=== PATIENT | male | born 1940 | race Caucasian/White ===

== ENCOUNTER 2017-02-07 10:02 | Emergency (ER) | payer MEDICARE, OTHER, MEDICAID ==
[~2017-02-07] VITALS: Ht 172.7 cm; Wt 60.3 kg
[~2017-02-07 10:02] MED LIST: BUSP10TA3 PO; GABA100C PO; TEMA15CA PO
[2017-02-07] MEDS ORDERED: ACETAMINOPHEN ES 500 MG TABLET ONE (10:46)
[2017-02-07] MEDS ORDERED: ACETAMINOPHEN ES 500 MG TABLET PO ONE (11:00)
--- NOTE | 2017-02-07 11:00 | NUR ---
RECEIVED PT ON BED, AWAKE AND ALERT. PT TO ED LOWER AND MID BACK PAIN STARTED AFTER GETTING OUT OF BED A WEEK AGO. PATIENT'S VSS.
--- NOTE | 2017-02-07 12:24 | NUR ---
PT WAS TAKEN TO CT
[2017-02-07] MEDS ORDERED: ACETAMINOPHEN W/ CODEINE#3 1 EA TABLET ONE (12:27)
[2017-02-07] MEDS ORDERED: ACETAMINOPHEN W/ CODEINE#3 1 EA TABLET PO ONE (12:30)
--- NOTE | 2017-02-07 12:36 | NUR ---
PT STILL IN CT
[2017-02-07 13:19] VITALS: BP 140/80
--- NOTE | 2017-02-07 13:19 | NUR ---
Patient discharged to home in stable condition. Written and verbal after care instructions given. Patient verbalizes understanding of instruction.
== END 2017-02-07 13:20 | disposition home or self-care (01) ==
LOC: ER 10:03
DX: S32.019A Unspecified fracture of first lumbar vertebra, initial encounter for closed fracture (principal); M48.56XA Collapsed vertebra, not elsewhere classified, lumbar region, initial encounter for fracture; M51.35 Other intervertebral disc degeneration, thoracolumbar region; I10 Essential (primary) hypertension; Z86.73 Personal history of transient ischemic attack (TIA), and cerebral infarction without residual deficits; Z98.890 Other specified postprocedural states; W10.9XXA Fall (on) (from) unspecified stairs and steps, initial encounter; Y93.89 Activity, other specified; Y92.89 Other specified places as the place of occurrence of the external cause; Y99.9 Unspecified external cause status
CPT/HCPCS: 71010-TC; 72070-TC; 72110-TC; 72131-TC; A4606; Z7610

== ENCOUNTER 2017-03-10 09:27 | Inpatient (IN) | payer MEDICARE, OTHER, MEDICAID ==
[~2017-03-10] VITALS: Ht 175.3 cm; Wt 59.0 kg
--- NOTE | 2017-03-10 09:30 | NUR ---
C/O GLF THIS AM STATES AFTER GETTING UP TOO FAST THIS MORNING, LAC TO LEFT SIDE OF FOREHEAD NOTED. DENIES TAKING BLOODTHINNERS, ONLY XANAX AND RESTORIL FOR MEDICATIONS. NAD NOTED. PT AAO X4, AMB WITH STEADY GAIT. RR EVEN AND UNLABORED. DR DORANTES AT BEDSIDE FOR EVAL.
[2017-03-10] MEDS ORDERED: ALPR0.25 PO (09:38)
[2017-03-10] MEDS ORDERED: TEMA15CA5 PO (09:38)
[2017-03-10] MEDS ORDERED: LIDOCAINE 2% 20 ML MDV ONE (09:44)
--- NOTE | 2017-03-10 09:47 | NUR ---
PATIENT TAKEN TO CT VIA STRETCHER.
[2017-03-10 09:51] LABS: BASOPHILS % (AUTO) 0.6 % (0.0-2.0); EOSINOPHILS # (AUTO) 0.2 /CMM (0.0-0.7); EOSINOPHILS % (AUTO) 3.6 % (0.0-6.0); HEMATOCRIT 45 % (39-51); HEMOGLOBIN 14.6 g/dL (13.5-17.5); LYMPHOCYTES # (AUTO) 1.3 /CMM (0.8-4.8); LYMPHOCYTES % (AUTO) 24.1 % (20.0-44.0); MEAN CORPUSCULAR HEMOGLOBIN 32 PG (26.0-33.0); MEAN CORPUSCULAR HGB CONC 32 g/dl (31.0-36.0); MEAN CORPUSCULAR VOLUME 97 fL (80-96); MONOCYTES # (AUTO) 0.3 /CMM (0.1-1.30); MONOCYTES % (AUTO) 6.2 % (2.0-12.0); NEUTROPHILS # (AUTO) 3.6 /CMM (1.8-8.9); NEUTROPHILS % (AUTO) 65.5 % (43.0-81.0); PLATELET COUNT (AUTO) 209 /CMM (150-450); RDW COEFFICIENT OF VARIATION 13.8 (11.5-15.0); RED BLOOD CELL COUNT(AUTO) 4.63 MIL/uL (4.5-6.0); WHITE BLOOD COUNT (AUTO) 5.4 K/uL (4.3-11.0)
[2017-03-10 10:00] LABS: CALCIUM, SERUM 8.5 mg/dL (8.5-10.1); CARBON DIOXIDE 33 mmol/L (21-32); CHLORIDE 106 mmol/L (98-107); CREATININE 1.1 mg/dL (0.6-1.3); GLUCOSE 102 mg/dL (74-106); SODIUM SERUM 144 mmol/L (136-145); UREA NITROGEN, BLOOD 13 mg/dL (7-18)
[2017-03-10] MEDS ORDERED: LIDOCAINE HCL/PF 1% 30 ML VIAL TP ONE (10:00)
--- NOTE | 2017-03-10 10:00 | NUR ---
PATIENT RETURNED FROM CT.
[2017-03-10 10:06] LABS: ALANINE AMINOTRANSFERASE 15 U/L (12-78); ALBUMIN 3.2 g/dL (3.4-5.0); ALKALINE PHOSPHATASE 124 U/L (46-116); ASPARTATE AMINOTRANSFERASE 16 U/L (15-37); BILIRUBIN,DIRECT 0.1 mg/dL (0.0-0.2); BILIRUBIN,TOTAL 0.5 mg/dL (0.2-1.0); TOTAL PROTEIN, SERUM 6.4 g/dL (6.4-8.2)
[2017-03-10 10:07] LABS: INR 0.98 (0.87-1.13); PROTHROMBIN TIME 10.2 SECS (9.5-12.7)
[2017-03-10 10:08] LABS: TROPONIN I < 0.017 ng/mL (0.00-0.056)
[2017-03-10] MEDS ORDERED: TEMA7.5C12 PO (10:18)
[2017-03-10] MEDS ORDERED: GABA-534 PO (10:18)
[2017-03-10] MEDS ORDERED: PARO10TA3 PO (10:26)
--- NOTE | 2017-03-10 10:38 | NUR ---
PANEL ON-CALL PAGED
--- NOTE | 2017-03-10 10:42 | NUR ---
REPORT GIVEN TO CARRILLO ROBERTSON FOR ANGEL
--- NOTE | 2017-03-10 11:10 | NUR ---
PATIENT TRANSFERRED TO [facility] VIA ACLS PROTOCOL. RNSALONI TO PROVIDE ANGEL.
--- NOTE | 2017-03-10 11:30 | NUR ---
RPG PROGRAMMERSPECIAL EDUCATION TEACHER NOTE PATIENT IS ALERT AND ORIENTED x4. NO PAIN AT THIS TIME. NO SOB OR DISTRESS NOTED. CALL LIGHT WITHIN REACH. SAFETY MEASURES IMPLEMENTED. ABLE TO COMMUNICATE NEEDS. BEDREST FOR NOW. PATIENT CAME FROM HOME, HE STATED HE FELT DIZZY AND FELL IN BATHROOM. PATIENT HAS MONITOR ON, SINUS [id number]. HISTORY OF STROKE, TIA, URETER SURGERY, PNA, AND HTN. NO KNOWN ALLERGIES. FULL CODE NO ISOLATION. IV ON LEFT AC 18G RUNNING WELL. NO MD ORDERS AT THIS TIME. WILL FOLLOW UP WITH MD.
[2017-03-10] MEDS ORDERED: TEMAZEPAM 7.5 MG CAPSULE PO PRN (13:00)
[2017-03-10] MEDS ORDERED: IV NS 0.9% 1,000 ML BAG IV PRN (13:00)
[2017-03-10] MEDS ORDERED: CLONIDINE HCL 0.1 MG TABLET PO PRN (14:00)
[2017-03-10] MEDS ORDERED: ONDANSETRON HCL/PF 4 MG/2 ML VIAL IVP PRN (14:00)
[2017-03-10] MEDS ORDERED: ACETAMINOPHEN 325 MG TABLET PO PRN (14:00)
[2017-03-10] MEDS: PAROXETINE HCL 10 MG TABLET PO SCH (14:06)
[2017-03-10] MEDS: GABAPENTIN 300 MG CAPSULE PO SCH ×2 (14:06→17:14)
[2017-03-10] MEDS: HYDROCODONE/APAP 5/325MG 1 EACH TABLET PO PRN ×2 (14:09→21:30)
--- NOTE | 2017-03-10 18:43 | NUR ---
MANAGER CLINICAL RESEARCH CLOSING NOTE PATIENT IS ALERT AND ORIENTEDX4. NO PAIN AT THIS TIME. NO SOB OR DISTRESS NOTED. CALL LIGHT WITHIN REACH.SAFETY MEASURES IMPLEMENTED. ABLE TO COMMUNICATE NEEDS. BEDREST. IV INTACT AND PATENT NO REDNESS OR SWELLING NOTED. NPO AFTER MIDNIGHT FOR ECHO AND POSSIBLE STRESS TEST IN THE MORNING 03/11/17. ALL DUE MEDICATIONS GIVEN ORDERED. WILL ENDORSE TO GLUE MAKER BONE NURSE FOR ANGEL
--- NOTE | 2017-03-10 19:00 | NUR ---
MS RN OPENING NOTES RECEIVE PT RESTING IN BED,PT A/OX 3. NO S/S OF RESPIRATORY DISTRESS OR SOB. SAFETY MEASURES IN PLACE, ON LOW BED TO ENSURE SAFETY. CALL LIGHT WITHIN REACH. WILL CONTINUE TO MONITOR
[2017-03-10] MEDS: IV NS 0.9% 1,000 ML IV PRN (19:06)
[2017-03-10 20:00] VITALS: BP 124/77
[2017-03-10 21:11] VITALS: BP 124/77
[2017-03-11] VITALS (7 sets, daily range): BP systolic 114–143; BP diastolic 62–90
--- NOTE | 2017-03-11 06:23 | NUR ---
FOUNTAIN PEN TURNER CLOSING NOTES PATIENT COMFORTABLY ASLEEP AND EASILY AWAKEN, A/O X 3, HEAD OF BED ELEVATED FOR BETTER LUNG EXPANSION TOLERATING ROOM AIR 100% LAC 18 G NS RUNNING AT 75 CC/HR IV SITE NO S/S OF INFILTRATED, PATIENT DENIES PAIN AT THIS TIME. RESPIRATIONS EVEN AND UNLABORED. NO S/S OF ACUTE DISTRESS, NO SOB, NO COUGH, NO CONGESTION, SKIN WARM AND DRY TO TOUCH, AFEBRILE, ALL NURSING CARE NEEDS PROVIDED AND RENDERED. KEPT CLEAN AND DRY AND COMFORTABLE, GOOD SKIN ARE PROVIDED. FREQUENT VISUAL CHECK DONE FOR SAFETY EVERY 2 HOURS. SAFE HAZARD FREE ENVIRONMENT PROVIDED. CALL LIGHT WITHIN EASY TO REACH, ON LOW BED AT ALL TIMES TO ENSURE SAFETY, WILL ENDORSE TO THE NEXT SHIFT CONTINUE PLAN OF CARE. ATTACH TO TELE MONITOR
--- NOTE | 2017-03-11 07:55 | NUR ---
RN NOTES RECEIVED PT. PT IS STABLE AND SLEEPING IN BED. NO S/S OF DISTRESS OR SOB. NO C/O PAIN AT THIS MOMENT. PT IS ON RA, O2 SAT ABOVE 95%. PT IS ON TELE MONITOR, CURRENTLY SR. IV ACCESS LOCATED ON LEFT AC 18 G RUNNING NS AT 75 ML/HR. PT IS SCHEDULED FOR ECHOCARDIOGRAM TODAY, 03/11. SAFETY MEASURES IN PLACE, CALL LIGHT WITHIN REACH. WILL CONTINUE TO MONITOR.
[2017-03-11 07:59] LABS: BASOPHILS % (AUTO) 0.4 % (0.0-2.0); EOSINOPHILS # (AUTO) 0.2 /CMM (0.0-0.7); HEMATOCRIT 42 % (39-51); LYMPHOCYTES # (AUTO) 1.7 /CMM (0.8-4.8); LYMPHOCYTES % (AUTO) 37.1 % (20.0-44.0); MEAN CORPUSCULAR HEMOGLOBIN 33 PG (26.0-33.0); MEAN CORPUSCULAR HGB CONC 34 g/dl (31.0-36.0); MEAN CORPUSCULAR VOLUME 98 fL (80-96); MONOCYTES # (AUTO) 0.4 /CMM (0.1-1.30); NEUTROPHILS # (AUTO) 2.3 /CMM (1.8-8.9); NEUTROPHILS % (AUTO) 49.5 % (43.0-81.0); PLATELET COUNT (AUTO) 178 /CMM (150-450); RDW COEFFICIENT OF VARIATION 14.5 (11.5-15.0); RED BLOOD CELL COUNT(AUTO) 4.28 MIL/uL (4.5-6.0); WHITE BLOOD COUNT (AUTO) 4.6 K/uL (4.3-11.0)
[2017-03-11 08:16] LABS: CALCIUM, SERUM 8.5 mg/dL (8.5-10.1); CARBON DIOXIDE 29 mmol/L (21-32); CHLORIDE 108 mmol/L (98-107); CREATININE 0.9 mg/dL (0.6-1.3); GLUCOSE 85 mg/dL (74-106); POTASSIUM 3.9 mmol/L (3.5-5.1); SODIUM SERUM 142 mmol/L (136-145); UREA NITROGEN, BLOOD 14 mg/dL (7-18)
[2017-03-11 08:21] LABS: TROPONIN I < 0.017 ng/mL (0.00-0.056)
[2017-03-11 08:22] LABS: CHOLESTEROL 177 mg/dL (<200); HDL CHOLESTEROL 43 mg/dL (40-60); LDL 119 mg/dL (0-99); TRIGLYCERIDES 85 mg/dL (30-150)
[2017-03-11] MEDS: GABAPENTIN 300 MG CAPSULE PO SCH ×2 (08:41→16:08)
[2017-03-11] MEDS: PANTOPRAZOLE 40 MG TABLET.DR PO SCH (08:41)
[2017-03-11] MEDS: HYDROCODONE/APAP 5/325MG 1 EACH TABLET PO PRN ×2 (08:42→20:41)
[2017-03-11] MEDS: ENOXAPARIN SODIUM 40 MG/0.4 ML DISP.SYRIN SQ SCH (08:43)
[2017-03-11] MEDS: ASPIRIN 81 MG TAB.CHEW PO SCH (08:43)
[2017-03-11] MEDS: PAROXETINE HCL 10 MG TABLET PO SCH (08:43)
[2017-03-11 09:11] LABS: ALBUMIN 2.7 g/dL (3.4-5.0); BILIRUBIN,TOTAL 0.4 mg/dL (0.2-1.0); MAGNESIUM 1.9 mg/dL (1.8-2.4); PHOSPHORUS 3.2 mg/dL (2.5-4.9); TOTAL PROTEIN, SERUM 6.1 g/dL (6.4-8.2)
--- NOTE | 2017-03-11 10:14 | NUR ---
WOUND CARE CONSULT: PT PRESENTS WITH LEFT EYEBROW LACERATION WITH SUTURES, LEFT FACE ABRASION AND RT HEAD DRY ABRASION OR LESION, ALL PRESENT ON ADMISSION. PT ALSO NOTED TO HAVE LEFT PLANTAR FOOT CALLUS. PT IS CONTINENT AND ABLE TO TURN/REPOSITION IN BED. CURRENT FARIBA SCORE IS 18. RECOMMENDATIONS MADE FOR WOUND CARE AND DISCUSSED WITH NURSING STAFF. WILL SEE PRN. LUTHER IN AGREEMENT WITH PLAN OF CARE. Addendum: 03/11/17 at 1017 by VANDANA SERVIN WNDNU Amended: Links added.
[2017-03-11] MEDS ORDERED: BACITRACIN/POLYMYXIN B 15 GM TUBE TP SCH (10:30)
[2017-03-11 12:39] LABS: THYROID STIMULATING HORMONE 1.011 uIU/mL (0.358-3.74)
[2017-03-11] MEDS: NEOMY SULF/BACITRAC ZN/POLY 15 GM TUBE TP SCH (14:00)
[2017-03-11] MEDS: IV NS 0.9% 1,000 ML IV PRN (14:16)
[2017-03-11] MEDS: ALPRAZOLAM 0.25 MG TABLET PO PRN (16:08)
--- NOTE | 2017-03-11 19:00 | NUR ---
MS RN OPENING NOTES RECEIVE PT RESTING IN BED, A/OX 4. NO S/S OF RESPIRATORY DISTRESS OR SOB. SAFETY MEASURES IN PLACE, ON LOW BED TO ENSURE SAFETY. CALL LIGHT WITHIN REACH. WILL CONTINUE TO MONITOR
--- NOTE | 2017-03-11 19:01 | NUR ---
RN CLOSING NOTES PT IS IN BED RESTING. A/OX4. NO S/S OF DISTRESS OR SOB. NO C/O PAIN AT THIS TIME. PT IS ON TELE MONITOR, READING SR. PT'S HOME HEALTH CONTACTED TODAY, DIRECT NURSING SERVICE [phone]. SAFETY MEASURES IN PLACE, CALL LIGHT WITHIN REACH. WILL ENDORSE TO PLUCK TRIMMER FOR ANGEL.
[2017-03-12] VITALS (7 sets, daily range): BP systolic 115–160; BP diastolic 76–94
[2017-03-12] MEDS: IV NS 0.9% 1,000 ML IV PRN (02:55)
--- NOTE | 2017-03-12 04:41 | NUR ---
MS RN NOTES CLONIDINE 0.1 MG PO GIVEN TO THE PT BP 160/91 AT 0430 WILL CONTINUE TO MONITOR
--- NOTE | 2017-03-12 06:29 | NUR ---
HOME HEALTH CARE COORDINATOR CLOSING NOTES PT ASLEEP AND EASILY AWAKEN, HOB, TOLERATING ROOM AIR 100%. LAC 18 NS RUNNING 75CC/IV SITE NO S/S OF INFILTRATED, NO S/S OF RESPIRATORY DISTRESS IN STABLE CONDITION. NO SOB, SKIN WARM AND DRY TO TOUCH, AFEBRILE, NEEDS ATTENDED AND ANTICIPATED. NURSING CARE RENDERED. KEPT CLEAN AND DRY AND COMFORTABLE, GOOD SKIN CARE PROVIDED. FREQUENT VISUAL CHECK DONE FOR SAFETY EVERY 2 HOURS. SAFE HAZARD FREE ENVIRONMENT PROVIDED. CALL LIGHT WITHIN EASY TO REACH, ON LOW BED AT ALL TIMES TO ENSURE SAFETY, WILL ENDORSE TO THE NEXT SHIFT CONTINUE PLAN OF CARE. NO COMPLAINS OF PAIN AT THIS TIME 0/10. ATTACH TO TELE MONITOR,
[2017-03-12 07:25] LABS: BASOPHILS % (AUTO) 0.4 % (0.0-2.0); EOSINOPHILS # (AUTO) 0.2 /CMM (0.0-0.7); EOSINOPHILS % (AUTO) 4.6 % (0.0-6.0); HEMATOCRIT 41 % (39-51); HEMOGLOBIN 13.9 g/dL (13.5-17.5); LYMPHOCYTES # (AUTO) 1.5 /CMM (0.8-4.8); LYMPHOCYTES % (AUTO) 34.1 % (20.0-44.0); MEAN CORPUSCULAR HEMOGLOBIN 33 PG (26.0-33.0); MEAN CORPUSCULAR HGB CONC 34 g/dl (31.0-36.0); MEAN CORPUSCULAR VOLUME 97 fL (80-96); MONOCYTES # (AUTO) 0.3 /CMM (0.1-1.30); MONOCYTES % (AUTO) 5.9 % (2.0-12.0); NEUTROPHILS # (AUTO) 2.5 /CMM (1.8-8.9); PLATELET COUNT (AUTO) 188 /CMM (150-450); RDW COEFFICIENT OF VARIATION 14.3 (11.5-15.0); RED BLOOD CELL COUNT(AUTO) 4.22 MIL/uL (4.5-6.0); WHITE BLOOD COUNT (AUTO) 4.5 K/uL (4.3-11.0)
--- NOTE | 2017-03-12 07:30 | NUR ---
received pt. in am alert and orientedx3.no complaints offered,verbalized he wants to go home.
[2017-03-12 07:54] LABS: CALCIUM, SERUM 8.2 mg/dL (8.5-10.1); CARBON DIOXIDE 25 mmol/L (21-32); CHLORIDE 107 mmol/L (98-107); CREATININE 0.8 mg/dL (0.6-1.3); GLUCOSE 87 mg/dL (74-106); SODIUM SERUM 141 mmol/L (136-145); UREA NITROGEN, BLOOD 13 mg/dL (7-18)
[2017-03-12] MEDS: PAROXETINE HCL 10 MG TABLET PO SCH ×2 (09:00→09:13)
[2017-03-12] MEDS: ASPIRIN 81 MG TAB.CHEW PO SCH (09:13)
[2017-03-12] MEDS: HYDROCODONE/APAP 5/325MG 1 EACH TABLET PO PRN (09:13)
[2017-03-12] MEDS: PANTOPRAZOLE 40 MG TABLET.DR PO SCH (09:13)
[2017-03-12] MEDS: GABAPENTIN 300 MG CAPSULE PO SCH (09:13)
--- NOTE | 2017-03-12 09:13 | NUR ---
med. for back pain with [place].
[2017-03-12] MEDS: ENOXAPARIN SODIUM 40 MG/0.4 ML DISP.SYRIN SQ SCH (09:15)
[2017-03-12] MEDS: NEOMY SULF/BACITRAC ZN/POLY 15 GM TUBE TP SCH (09:16)
--- NOTE | 2017-03-12 12:45 | NUR ---
mrsa smear done and and lab notified.
[2017-03-12] MEDS: ALPRAZOLAM 0.25 MG TABLET PO PRN (13:37)
--- NOTE | 2017-03-12 13:37 | NUR ---
medicated for nerves with xanax.did refuse paxil in am.
--- NOTE | 2017-03-12 15:00 | NUR ---
dr. osorio in and dc order given.
--- NOTE | 2017-03-12 15:25 | NUR ---
discharge photos taken.tolerated well.attempting to arrange for his ride.
--- NOTE | 2017-03-12 17:30 | NUR ---
discharge instructions given,all papers signed.hep lock out. friend here to pick pt. up,wheeled to lobby by rn.pt. aware to see coconut cooker for suture removal and follow up with dr. duran.
== END 2017-03-12 17:35 | disposition home or self-care (01) | DRG 312 ==
LOC: ER 09:29 → TELE 10:47 → MED 03-12 09:00
PROVIDERS: ADMIT Internal Medicine; ATTEND Internal Medicine
PROC: 0HQ1XZZ Repair Face Skin, External Approach (ICD-10-PCS; principal; 2017-03-10)
DX: R55 Syncope and collapse (principal); G62.9 Polyneuropathy, unspecified; W18.30XA Fall on same level, unspecified, initial encounter; I10 Essential (primary) hypertension; E78.5 Hyperlipidemia, unspecified; I25.10 Atherosclerotic heart disease of native coronary artery without angina pectoris; Z79.899 Other long term (current) drug therapy; Z86.73 Personal history of transient ischemic attack (TIA), and cerebral infarction without residual deficits; Z87.891 Personal history of nicotine dependence; R53.1 Weakness; M19.90 Unspecified osteoarthritis, unspecified site; Y93.9 Activity, unspecified; Y92.009 Unspecified place in unspecified non-institutional (private) residence as the place of occurrence of the external cause; S01.81XA Laceration without foreign body of other part of head, initial encounter; F41.1 Generalized anxiety disorder
CPT/HCPCS: 36415; 70450-TC; 71010-TC; 80048-TC; 80061-TC; 80076-TC; 82306; 83735-TC; 84100-TC; 84439-TC; 84443-TC; 84484-TC; 85025-TC; 85730-TC; 87081-TC; 93307-TC; A4606; A6402; J1650; J3490; J7030; Z7610

== ENCOUNTER 2019-03-12 10:09 | Emergency (ER) | payer BC, MEDICAID ==
[~2019-03-12] VITALS: Ht 172.7 cm; Wt 59.0 kg
[~2019-03-12 10:09] MED LIST changes: +ALPR0.25 PO; -BUSP10TA3 PO; +GABA-534 PO; -GABA100C PO; +PARO10TA4 PO; -TEMA15CA PO; +TEMA7.5C12 PO
[2019-03-12 10:16] VITALS: BP 164/110
[2019-03-12] MEDS ORDERED: TEMA15CA5 PO (10:21)
[2019-03-12] MEDS ORDERED: OXYC-133 PO (10:21)
--- NOTE | 2019-03-12 10:29 | NUR ---
AT BEDSIDE FOR EVAL.
[2019-03-12] MEDS ORDERED: LORAZEPAM 0.5 MG TABLET ONE (10:33)
--- NOTE | 2019-03-12 10:40 | NUR ---
Patient discharged to home in stable condition. Written and verbal after care instructions given. Patient verbalizes understanding of instruction.
[2019-03-12] MEDS ORDERED: LORAZEPAM 1 MG TABLET PO ONE (11:00)
== END 2019-03-12 10:40 | disposition home or self-care (01) ==
LOC: ER 10:19
DX: S00.81XA Abrasion of other part of head, initial encounter (principal); I10 Essential (primary) hypertension; F41.9 Anxiety disorder, unspecified; Z76.0 Encounter for issue of repeat prescription; Z86.73 Personal history of transient ischemic attack (TIA), and cerebral infarction without residual deficits; Z98.890 Other specified postprocedural states; X58.XXXA Exposure to other specified factors, initial encounter; Y93.89 Activity, other specified; Y92.89 Other specified places as the place of occurrence of the external cause; Y99.8 Other external cause status

== ENCOUNTER → 2019-08-25 | Emergency (ER) | payer BC, OTHER ==
[~2019-08-25] VITALS: Ht 172.7 cm; Wt 59.0 kg
[~2019-08-25] MED LIST changes: +OXYC-133 PO; +TEMA15CA5 PO
[2019-08-25 14:05] VITALS: BP 176/112
== END | disposition home or self-care (01) ==
LOC: ER 13:47
DX: Z76.0 Encounter for issue of repeat prescription (principal); I10 Essential (primary) hypertension; Z86.73 Personal history of transient ischemic attack (TIA), and cerebral infarction without residual deficits; Z98.890 Other specified postprocedural states; Z79.899 Other long term (current) drug therapy